=== PATIENT | female | born 1985 | race Caucasian/White ===

== ENCOUNTER 2016-11-26 20:26 | Inpatient (IN) | payer MEDICAID ==
[~2016-11-26] VITALS: Ht 154.9 cm; Wt 89.8 kg
[2016-11-26 20:58] VITALS: BP 132/78; PULSE 81; RESP 18; Ht 154.9 cm; Wt 89.8 kg
[2016-11-26] MEDS ORDERED: PREN-93 PO (21:00)
[2016-11-26] MEDS ORDERED: OXYTOCIN 30 UNITS/LR 500 ML IV PRN (22:30)
[2016-11-26] MEDS ORDERED: IBUPROFEN 600 MG TAB PO PRN (22:30)
[2016-11-26] MEDS ORDERED: ACETAMINOPHEN/CODEINE #3 TAB PO PRN (22:30)
[2016-11-26] MEDS ORDERED: BUTORPHANOL 2 MG INJ IV PRN ×2 (22:30)
[2016-11-26] MEDS ORDERED: METHYLERGONOVINE 0.2 MG INJ IM PRN (22:30)
[2016-11-26] MEDS ORDERED: LIDOCAINE 1% (MPF) 30 ML INJ INJ PRN (22:30)
[2016-11-26] MEDS ORDERED: AMPICILLIN 2 GM/NS (PMX) 100 ML IV ONE (22:30)
[2016-11-26] MEDS ORDERED: CARBOPROST 250 MCG INJ IM PRN (22:30)
[2016-11-26] MEDS ORDERED: OXYTOCIN 30 UNITS/LR 500 ML IV SCH ×2 (22:30)
[2016-11-26] MEDS ORDERED: MISOPROSTOL 200 MCG TAB PR PRN (22:30)
[2016-11-26] MEDS ORDERED: LACTATED RINGER'S 1,000 ML IV PRN (22:45)
[2016-11-26] MEDS: LACTATED RINGER'S 1,000 ML IV SCH (22:49)
--- NOTE | 2016-11-26 23:14 | RADRPT ---
PROCEDURE: OB ultrasound for biophysical profile CLINICAL INDICATION: Biophysical profile. . Contractions TECHNIQUE: Multiple sonographic images of the pelvis were obtained. Transabdominal views are obta ined. COMPARISON: None FINDINGS: Single intrauterine gestation. Presentation: Cephalic. Placenta: Fundal - left No evidence of placental abruption. No evidence of placenta previa. breathing movement = 2/2 tone = 2/2 motion = 2/2 MALLY = 0/2 MALLY = 3.9 cm heart rate: 173 beats per minute IMPRESSION: Single intrauterine gestation. Biophysical profile 8 MALLY = 3.9 cm oligohydramnios Results were discussed with Nurse Wild by telephone at 2310 hours on 11/26/[address] Jacky pickens RPTAT: AADD .Jacky Reynolds MD, Date Time Electronically viewed and signed by .Jacky Reynolds MD, on 11/26/2016 23:14 .B/
[2016-11-26 23:37] LABS: ADD SCAN DIFF NO
[2016-11-26 23:39] LABS: ADD UMIC YES; URINE BILIRUBIN (Dip) NEGATIVE (NEGATIVE); URINE BLOOD (Dip) 1+ (NEGATIVE); URINE COLOR LT. YELLOW (YELLOW); URINE GLUCOSE (Dip) NEGATIVE (NEGATIVE); URINE KETONES (Dip) NEGATIVE (NEGATIVE); URINE LEUKOCYTE ESTERASE (Dip) NEGATIVE (NEGATIVE); URINE NITRITE (Dip) NEGATIVE (NEGATIVE); URINE TOTAL PROTEIN (Dip) NEGATIVE (NEGATIVE); URINE UROBILINOGEN (Dip) 0.2 E.U./dL (0.1-1.0)
[2016-11-26 23:40] LABS: BASOPHILS % 0.2 % (0.0-2.0); EOSINOPHILS # 0.1 10^3/ul (0.0-0.5); EOSINOPHILS % 0.5 % (0.0-7.0); HEMATOCRIT 37.5 % (37.0-47.0); LYMPHOCYTES # 2.8 10^3/ul (0.8-2.9); LYMPHOCYTES % 19.1 % (15.0-51.0); MEAN CORPUSCULAR HEMOGLOBIN 28.1 pg (29.0-33.0); MEAN CORPUSCULAR HGB CONC 34.7 g/dl (32.0-37.0); MEAN CORPUSCULAR VOLUME 81.2 fl (82.0-101.0); MONOCYTES % 6.5 % (0.0-11.0); NEUTROPHIL # 10.6 10^3/ul (1.6-7.5); NEUTROPHILS % 73.1 % (39.0-77.0); PLATELET COUNT 299 10^3/UL (140-415); RED BLOOD COUNT 4.62 10^6/ul (4.20-5.40); RED CELL DISTRIBUTION WIDTH 16.1 % (11.5-14.5); WHITE BLOOD COUNT 14.5 10^3/ul (4.8-10.8)
[2016-11-26 23:44] LABS: INR 0.85; PROTIME 11.6 Sec (12.2-14.2); PT RATIO 0.9
[2016-11-26 23:45] LABS: PARTIAL THROMBOPLASTIN TIME 25.6 Sec (25.0-35.0)
[2016-11-26 23:56] LABS: BACTERIA,URINE FEW; SQUAMOUS EPITHELIAL CELL,UR FEW; URINE RBCS 0-2 /HPF (0)
[2016-11-26 23:57] LABS: ALANINE AMINOTRANSFERASE 29 IU/L (13-69); ALBUMIN 3.3 g/dl (3.3-4.9); ALBUMIN/GLOBULIN RATIO 0.94; ALKALINE PHOSPHATASE 129 IU/L (42-121); ANION GAP 9 (8-16); ASPARTATE AMINO TRANSFERASE 21 IU/L (15-46); BLOOD UREA NITROGEN 8 mg/dl (7-20); CALCIUM 9.5 mg/dl (8.4-10.2); CARBON DIOXIDE 23 mmol/L (21-31); CHLORIDE 107 mmol/L (97-110); CREATININE 0.56 mg/dl (0.44-1.00); GLUCOSE 97 mg/dl (70-220); POTASSIUM 3.6 mmol/L (3.5-5.1); SODIUM 135 mmol/L (135-144); TOTAL PROTEIN 6.8 g/dl (6.1-8.1)
[2016-11-27 00:16] VITALS: BP 119/71; PULSE 78
[2016-11-27] MEDS: LACTATED RINGER'S 1,000 ML IV SCH ×2 (00:17→04:51)
--- NOTE | 2016-11-27 00:57 | TRIAGE ---
OB Triage Datetime Report Generated by CPN: 11/27/2016 00:57 Datetime: 11/27/2016 00:30 Assessment Type: Admission Assessment Vaginal Bleeding: None Maternal Assessment Level of Consciousness: Fully Conscious DTR's/Clonus: DTRs 2+; No Clonus Headache: Denies Blurred Vision: No Respiratory Effort: Unlabored; Regular Rhythm; Equal Expansion Breath Sounds, Left: Clear and Equal Breath Sounds, Right: Clear and Equal Nausea/Vomiting: Denies RUQ Epigastric Pain: Denies Lower Extremities Edema: None Degree: None Upper Extremities Edema: None Degree: None Facial Edema: None Fall Risk Assessment History of Falling: (0) No Secondary Diagnosis: (0) No Ambulatory Aid: (0) Bedrest/Nurse Assist IV Therapy: (20) Yes Gait: (0) Normal/Bedrest/Immobile Mental Status: (0) Oriented to Own Ability Labor Evaluation Frequency: OCCASIONAL Duration (sec)2399: 60-100 Quality: Mild Pattern: Normal: <= 5 Contractions in 10 Minutes Resting Tone Indios: Relaxed Heart Rate FHR Baseline Rate: 150 Variability: Moderate 6-25 bpm Accelerations: 15X15 Decelerations: Variable Category: Category II Pain Assessment Pain Scale: 4 Pain Presence: Intermittent Pain Type: Contraction Pain Location: Abdomen Pain Goal: 4 Membrane Status: Intact Datetime: 11/26/2016 23:43 Stage of : Labor Datetime: 11/26/2016 23:00 Time of Arrival: 11/26/2016 23:00 EGA: 37.0 Arrived By: Ambulatory Arrived From: Other Unit in Hospital Datetime: 11/26/2016 22:42 Membrane Status: Intact Datetime: 11/26/2016 22:30 Labor Evaluation Frequency: IRREGULAR Monitor Mode: External Duration (sec)2399: 40-60 Quality: Mild Pattern: Normal: <= 5 Contractions in 10 Minutes Resting Tone Indios: Relaxed Heart Rate FHR Baseline Rate: 145 Monitor Mode: External US FHR Baseline Changes: No Baseline Change Variability: Moderate 6-25 bpm Accelerations: 10X10 Decelerations: Late; Variable Category: Category II Datetime: 11/26/2016 21:54 Stage of : OB Triage Datetime: 11/26/2016 21:44 Vaginal Exam Dilatation (cms): 1.0 Effacement (%): 30 Station: -3 Exam By: Juan DELUCA RN Vaginal Bleeding: Scant Cervix, Consistency: Firm Cervix, Position: Posterior Datetime: 11/26/2016 21:30 Labor Evaluation Frequency: 9 Monitor Mode: External Duration (sec)2399: 60 Quality: Mild Pattern: Normal: <= 5 Contractions in 10 Minutes Resting Tone Indios: Relaxed Heart Rate FHR Baseline Rate: 145 Monitor Mode: External US FHR Baseline Changes: No Baseline Change Variability: Moderate 6-25 bpm Accelerations: 10X10 Decelerations: Late; Variable Category: Category II Datetime: 11/26/2016 20:47 Stage of : OB Triage Time of Arrival: 11/26/2016 20:20 EGA: 37.0 Chief Complaint: CONTRACTIONS/ SPOTTING Movement: Present Contractions: Irregular Time Contractions Began: 11/26/2016 09:00 Rupture of Membranes: Denies Vaginal Discharge: Present Recent Sexual Intercouse: Denies Abdominal Trauma: Not Applicable Patient Complaints: None Additional Patient Complaints: NO BLEEDING NOTED Time Provider Notified: 11/26/2016 21:15 Provider Notified: ALL Initial Plan: CALL GERALD REDDING Maternal Assessment Level of Consciousness: Fully Conscious DTR's/Clonus: DTRs 2+; No Clonus Headache: Denies Blurred Vision: No Respiratory Effort: Unlabored; Regular Rhythm; Equal Expansion Breath Sounds, Left: Clear and Equal Breath Sounds, Right: Clear and Equal Nausea/Vomiting: Denies RUQ Epigastric Pain: Denies Lower Extremities Edema: Bilateral Lower Extremities Degree: 1+ Upper Extremities Edema: None Degree: None Facial Edema: None Temperature Route: Oral Fall Risk Assessment History of Falling: (0) No Secondary Diagnosis: (0) No Ambulatory Aid: (0) Bedrest/Nurse Assist IV Therapy: (0) No Gait: (0) Normal/Bedrest/Immobile Mental Status: (0) Oriented to Own Ability Fall Score: 0 Fall Risk Score Definition: No Risk: No action required Monitor Mode: External Monitor Mode: External US Pain Assessment Pain Scale: 0
[2016-11-27] MEDS ORDERED: MISOPROSTOL 25 MCG CAPSULE PO SCH (01:00)
--- NOTE | 2016-11-27 01:54 | HP ---
Date/Time of Note Date/Time of Note DATE: 11/27/16 TIME: 01:45 OB - History Hx of Present Free Text/Dictation 31 Year-old with SIUP at 37 wks presents with a chief complaint of ucs since 09:00 this morning. She has been receiving her care with [facility]. She states good movement. She denies nausea, vomiting, shortness of breath, chest pain, and abdominal pain between contractions, headache, visual changes, vaginal bleeding or LOF. : 3 Para: 2 Spontaneous : 0 Therapeutic : 0 Care: Good Care Obstetrical Complications: None Medical Complications: None Past Family/Social History * Past Medical, Surgical, Family and Obstetric Histories reviewed from chart. Blood Type: A+ OB Admission Exam Vital Signs Vital Signs Vital Signs Date Time Temp Pulse Resp B/P Pulse Ox O2 Delivery O2 Flow Rate FiO2 11/27/16 00:16 98.7 78 119/71 Room Air 11/26/16 20:58 18 Physical Exam HEENT: WNL Heart: Rhythm Normal Lungs: Clear Abdomen: WNL Extremities: Normal Cervical Dilatation: 1cm Effacement: 75% Station: -3 Membranes: Intact Heart Rate: 140's Accelerations: Accelerations Present Decelerations: Variable Decelerations Varibility: Moderate Contractions on Admission: 6-10 Minutes Apart Intensity: Mild Last 72 hours Lab Results CBC & BMP 11/26/16 22:50 Liver Function Test 11/26/16 22:50 Alanine Aminotransferase (ALT/SGPT) 29 Albumin 3.3 Alkaline Phosphatase 129 H Aspartate Amino Transf (AST/SGOT) 21 Direct Bilirubin 0.00 Total Protein 6.8 OB Assessment/Plan Other plan: 31 Year-old with SIUP at 37 wks presents with oligo - FHR: No sign of metabolic acidosis- Category I - Continious EFM, toco - CBC, blood type and screen - Analgesia options with R/B/A discussed in detail with patient - Epidural per patient request - Please see the orders - Obtain PN record tomorrow morning Admission, procedures, expectations, risks and possible complications have been discussed in detail with the patient. Risk of vaginal delivery including but not limited to bleeding, infection, cervical laceration, placental retention, injury to fetus, blood transfusion, blood transfusion related infection, risk of anesthesia, adhesion, cervical laceration, episiotomy/laceration, possible delivery with risk of bleeding, infection, injury to other organs ( bowel, bladder, ureter, vessels, nerves), injury to fetus, blood transfusion, blood transfusion related infection, risk of anesthesia, scar and hernia formation, needs for future , removal of uterus or any other indicated surgery discussed with the patient. She expressed understanding and repeats the risks. All of her questions were answered; all appropriate consents will be signed. PHYSICIAN'S VERIFICATION OF INFORMED CONSENT: The patient was counseled regarding the procedure, its indications, risks, potential complications and alternatives and any questions were answered. Consent was obtained. PLANNED PROCEDURE/TREATMENT: Vaginal delivery with possible vacuum/forceps delivery episiotomy, repair of laceration possible delivery PHYSICIAN'S VERIFICATION OF INFORMED CONSENT FOR BLOOD TRANSFUSION: There is a reasonable possibility that blood transfusion will be necessary as a result of the patient's procedure. I have discussed the following with the patient/patient's legal metals sales representative: An explanation of the benefits and risks of the transfusion of blood or blood products and the possible alternatives. Al questions have been answered to the patient's/patients legal representatives satisfaction. INFORMED CONSENT: The patient has been informed of: - The nature of the proposed care, treatment, services, medic- Potential benefits, risks or side effects, including potential problems related to recuperation. - The likelihood of achieving care treatment and service goals. - Reasonable alternatives to the proposed care, treatment and service. - The relevant risks, benefits and side effects related to alternatives, including the possible results of not receiving care, treatment and services. - When indicated, any limitations on the confidentiality of information learned from or about the patient. - If appropriate, the risks, benefits and alternatives of the drugs to be used for sedation/analgesia including moderate sedation. - If appropriate, patient has been provided information on the risks, benefits and alternatives to the transfusion of blood and/or blood products. ANGELES RANDALL November 27, 2016 01:53
[2016-11-27] MEDS: AMPICILLIN 1 GM/NS (PMX) 50 ML IV SCH ×2 (04:17→06:30)
[2016-11-27] MEDS ORDERED: OXYTOCIN 30 UNITS/LR 500 ML IV SCH ×2 (07:34)
--- NOTE | 2016-11-27 07:34 | LDN ---
Date/Time of Note Date/Time of Note DATE: 11/27/16 TIME: 07:00 Delivery Summary 30 yol EDC 12/17/2016 Oligohydramnios ,induced on 11/26/2016 Placenta Delivered: Spontaneously Meconium: Light Episiotomy: No Anesthesia type: None Estimated blood loss: 250 Sponge & Needle done & correct: Yes All needle counts correct: Yes Any foreign bodies felt in the: No Problems: Infant Delivery Information Sex Infant Sex: female Apgars 1 Minute: 9 5 Minute: 9 Suctioning Nose & mouth suctioned at jaskaran: Yes Delee suction performed: No Umbilical Cord Umbilical cord with: 3 Vessels Cord presentations: no nuchal cord Cord Blood was obtained: Yes Mother & Baby Disposition Disposition Mom & Baby to Maternity; Good: Yes Mom transferred to: Med/Surg Baby to NICU: No VICENTA LEW MD November 27, 2016 07:34
[2016-11-27] MEDS ORDERED: DIBUCAINE 1% 30 GM OINT PR PRN (08:00)
[2016-11-27] MEDS ORDERED: OXYCODONE/ASPIRIN (4.88/325) TAB PO PRN ×2 (08:00)
[2016-11-27] MEDS ORDERED: IBUPROFEN 600 MG TAB PO PRN (08:00)
[2016-11-27] MEDS ORDERED: LANOLIN 7 GM TUBE TOP PRN (08:00)
[2016-11-27] MEDS ORDERED: CARBOPROST 250 MCG INJ IM PRN (08:00)
[2016-11-27] MEDS ORDERED: METHYLERGONOVINE 0.2 MG INJ IM PRN (08:00)
[2016-11-27] MEDS ORDERED: OXYTOCIN 30 UNITS/LR 500 ML IV PRN (08:00)
[2016-11-27] MEDS ORDERED: MISOPROSTOL 200 MCG TAB PR PRN (08:00)
[2016-11-27] MEDS ORDERED: BENZOCAINE 20% 56 ML SPRAY TOP PRN (08:00)
[2016-11-27] MEDS ORDERED: WITCH HAZEL/GLYCERIN PAD PR PRN (08:00)
[2016-11-27] MEDS ORDERED: ACETAMINOPHEN 500 MG TAB PO PRN ×2 (08:00)
[2016-11-27] MEDS: IBUPROFEN 600 MG TAB PO PRN ×2 (08:46→22:18)
[2016-11-27 10:40] VITALS: BP 136/75; PULSE 79; RESP 18
[2016-11-27 11:41] VITALS: BP 140/77; PULSE 82; RESP 17
[2016-11-27 16:17] VITALS: BP 126/72; PULSE 78; RESP 20
[2016-11-27 20:00] VITALS: BP 132/79; PULSE 83; RESP 19
[2016-11-27] MEDS: SENNA/DOCUSATE NA (8.6MG/50MG) TAB PO PRN (21:07)
[2016-11-27 23:45] VITALS: BP 115/68; PULSE 80; RESP 18
[2016-11-28 04:05] VITALS: BP 128/63; PULSE 76; RESP 17
[2016-11-28 08:00] VITALS: BP 117/58; PULSE 86; RESP 18
[2016-11-28 08:35] LABS: ADD SCAN DIFF NO
[2016-11-28 08:37] LABS: BASOPHILS % 0.2 % (0.0-2.0); EOSINOPHILS # 0.2 10^3/ul (0.0-0.5); EOSINOPHILS % 1.1 % (0.0-7.0); HEMATOCRIT 32.4 % (37.0-47.0); HEMOGLOBIN 10.8 g/dl (12.0-16.0); LYMPHOCYTES % 20.6 % (15.0-51.0); MEAN CORPUSCULAR HEMOGLOBIN 27.8 pg (29.0-33.0); MEAN CORPUSCULAR HGB CONC 33.3 g/dl (32.0-37.0); MEAN CORPUSCULAR VOLUME 83.5 fl (82.0-101.0); MEAN PLATELET VOLUME 9.8 fl (7.4-10.4); MONOCYTE # 0.7 10^3/ul (0.3-0.9); MONOCYTES % 4.9 % (0.0-11.0); NEUTROPHIL # 10.7 10^3/ul (1.6-7.5); NEUTROPHILS % 72.5 % (39.0-77.0); PLATELET COUNT 249 10^3/UL (140-415); RED BLOOD COUNT 3.88 10^6/ul (4.20-5.40); RED CELL DISTRIBUTION WIDTH 16.8 % (11.5-14.5); WHITE BLOOD COUNT 14.8 10^3/ul (4.8-10.8)
[2016-11-28] MEDS: IBUPROFEN 600 MG TAB PO PRN ×2 (09:30→17:31)
[2016-11-28 16:11] VITALS: BP 118/65; PULSE 76; RESP 20
--- NOTE | 2016-11-28 17:55 | DS ---
Date/Time of Note Date/Time of Note home next day DATE: 11/28/16 TIME: 17:54 Obstetrical Discharge Record Final Diagnosis Final Diagnosis: Term delivered Other Final Diagnosis S/P vaginal delivery Vaginal Delivery Obstetrical Delivery: Spontaneous Complications Induction: Yes Condition on Discharge Physical Assessment Last Vitals: see nurses notes Voiding: Yes Bowel Movement: Yes Breast: Soft, non-tender, Filling Fundus: Firm Abdomen and Incision: soft BS + Episiotomy: NA Calf Tenderness: No Patient Condition: Good BELKYS TUTTLE MD November 28, 2016 17:55
--- NOTE | 2016-11-28 17:56 | PD.PPDC ---
TELECASTING ENGINEER Discharge Instruction Provider Information Physician Information 32 y/o female had vaginal delivery Diagnosis Final Diagnosis: S/P vaginal delivery Condition Patient Condition: Good Diet Diet: Resume Regular Diet Activity/Restrictions Activity: Normal Activity May Shower Restrictions: Nothing in the Vagina Return to Work or School: Jan 14, 2017 Follow-up Follow-up with Physician: 4, Week/Weeks (in clinic ) Return to clinic for OB Instructions: Breast Tenderness Depression BELKYS TUTTLE MD November 28, 2016 17:56
[2016-11-28] MEDS ORDERED: IBUP-1542 PO (17:57)
[2016-11-28 20:00] VITALS: BP 127/79; PULSE 79; RESP 18
[2016-11-29 04:10] VITALS: BP 126/59; PULSE 67; RESP 18
[2016-11-29] MEDS: IBUPROFEN 600 MG TAB PO PRN ×2 (05:42→11:29)
[2016-11-29 08:00] VITALS: BP 122/64; PULSE 77; RESP 18
[2016-11-29] MEDS ORDERED: DIPHTH/TET/ACEL PERTUSS (ADULT) 0.5 ML VIAL IM* ONE (09:00)
[2016-11-29] MEDS: SENNA/DOCUSATE NA (8.6MG/50MG) TAB PO PRN (09:26)
[2016-11-29 16:00] VITALS: BP 118/60; PULSE 70; RESP 18
== END 2016-11-29 17:25 | disposition home or self-care (01) | DRG 775 ==
LOC: OBT 20:26 → L-D 20:28 → OBT 22:40 → L-D 22:40 → UNDODISIN 11-27 10:30 → PP1 11-27 11:36
PROVIDERS: ADMIT Obstetrics & Gynecology; ATTEND Obstetrics & Gynecology
PROC: 10E0XZZ Delivery of Products of Conception, External Approach (ICD-10-PCS; principal; 2016-11-27)
DX: O80 Encounter for full-term uncomplicated delivery (principal); Z37.0 Single live birth; Z3A.37 37 weeks gestation of pregnancy
CPT/HCPCS: 76818; 80053; 81001; 81003; 85025; 85610; 85730; 86592; 86703; 86762; 86900; 86901; 87086; 87340; 90715; J0290; J2590; J7120